=== PATIENT | female | born 2000 | race African-American/Black ===

== ENCOUNTER 2024-07-09 10:39 | Emergency (ER) | payer OTHER ==
[~2024-07-09] VITALS: Ht 167.6 cm; Wt 81.8 kg
[2024-07-09] MEDS ORDERED: TRAZ-186 PO (11:11)
[2024-07-09] MEDS ORDERED: VERA120C PO (11:11)
[2024-07-09] MEDS ORDERED: GALC120S SQ (11:11)
[2024-07-09] MEDS ORDERED: MELO15TA28 PO (11:11)
[2024-07-09] MEDS ORDERED: TOPI1CAP2 PO (11:11)
[2024-07-09] MEDS ORDERED: RIZA10TA58 PO (11:11)
[2024-07-09 15:46] LABS: BASO # 0.1 10^3/uL (0.0-0.2); BASO % 0.8 % (0.0-1.0); EOS % 0.3 % (0.0-3.0); HEMATOCRIT 41.3 % (36.0-47.0); HEMOGLOBIN 12.8 g/dl (12.0-15.5); LYMPH % 31.3 % (24.0-44.0); MEAN CORPUSCULAR HEMOGLOBIN 22.9 pg (27.0-33.0); MONO # 0.4 10^3/uL (0.0-0.8); MONO % 6.9 % (2.0-8.0); NEUTROPHILS # 3.9 10^3/uL (1.5-8.5); NEUTROPHILS % 60.4 % (36.0-66.0); PLATELET COUNT, AUTOMATED 320 10^3/uL (150-450); RED BLOOD COUNT 5.58 10^6/uL (4.00-5.40); WHITE BLOOD COUNT 6.4 10^3/uL (4.0-10.0)
[2024-07-09 15:57] LABS: BLOOD UREA NITROGEN 13 MG/DL (9-23); CALCIUM LEVEL 9.7 MG/DL (8.5-10.1); CARBON DIOXIDE LEVEL 27 MMOL/L (20-31); CHLORIDE LEVEL 104 MMOL/L (98-107); CREATININE FOR GFR 0.47 MG/DL (0.55-1.30); GLOMERULAR FILTRATION RATE > 60.0 (>60); GLUCOSE, FASTING 78 MG/DL (60-100); POTASSIUM SERUM 3.8 MMOL/L (3.5-5.1); SODIUM LEVEL 140 MMOL/L (136-145)
[2024-07-09 16:00] LABS: THYROID STIMULATING HORMONE 1.514 uIU/ML (0.55-4.78)
[2024-07-09 17:31] VITALS: BP 114/74; TEMP 98.3; O2SAT 100
== END 2024-07-09 17:56 | disposition home or self-care (01) ==
LOC: M ED 10:39
DX: R55 Syncope and collapse (principal); G43.909 Migraine, unspecified, not intractable, without status migrainosus; Z88.8 Allergy status to other drugs, medicaments and biological substances; Z79.899 Other long term (current) drug therapy

== ENCOUNTER 2024-08-31 09:09 | Emergency (ER) | payer OTHER ==
[~2024-08-31] VITALS: Ht 167.6 cm; Wt 90.0 kg
[~2024-08-31 09:09] MED LIST: GALC120S SQ; MELO15TA28 PO; RIZA10TA58 PO; TOPI1CAP2 PO; TRAZ-186 PO; VERA120C PO
[2024-08-31 11:46] LABS: BASO # 0.1 10^3/uL (0.0-0.2); BASO % 0.8 % (0.0-1.0); EOS % 0.7 % (0.0-3.0); HEMATOCRIT 43.5 % (36.0-47.0); HEMOGLOBIN 13.2 g/dl (12.0-15.5); LYMPH # 2.1 10^3/uL (1.5-5.0); LYMPH % 34.9 % (24.0-44.0); MEAN CORPUSCULAR HEMOGLOBIN 22.8 pg (27.0-33.0); MEAN CORPUSCULAR HGB CONC 30.3 g/dl (32.0-36.5); MEAN CORPUSCULAR VOLUME 75.3 fl (80.0-96.0); MONO # 0.4 10^3/uL (0.0-0.8); MONO % 6.7 % (2.0-8.0); NEUTROPHILS # 3.5 10^3/uL (1.5-8.5); NEUTROPHILS % 56.7 % (36.0-66.0); PLATELET COUNT, AUTOMATED 317 10^3/uL (150-450); RED BLOOD COUNT 5.78 10^6/uL (4.00-5.40); WHITE BLOOD COUNT 6.1 10^3/uL (4.0-10.0)
[2024-08-31 12:16] LABS: AMPHETAMINES LEVEL URINE NEGATIVE (NEGATIVE); BARBITURATES URINE NEGATIVE (NEGATIVE); BENZODIAZEPINES URINE NEGATIVE (NEGATIVE); COCAINE METABOLITE URINE NEGATIVE (NEGATIVE)
[2024-08-31 12:17] LABS: CANNABINOIDS URINE NEGATIVE (NEGATIVE); METHADONE URINE NEGATIVE (NEGATIVE); OPIATES URINE NEGATIVE (NEGATIVE); PHENCYCLIDINE URINE NEGATIVE (NEGATIVE)
[2024-08-31 12:20] LABS: BLOOD UREA NITROGEN 14 MG/DL (9-23); CALCIUM LEVEL 9.3 MG/DL (8.5-10.1); CARBON DIOXIDE LEVEL 26 MMOL/L (20-31); CHLORIDE LEVEL 106 MMOL/L (98-107); CREATININE FOR GFR 0.57 MG/DL (0.55-1.30); GLOMERULAR FILTRATION RATE > 60.0 (>60); GLUCOSE, FASTING 86 MG/DL (60-100); POTASSIUM SERUM 3.9 MMOL/L (3.5-5.1); SODIUM LEVEL 139 MMOL/L (136-145)
[2024-08-31 12:22] LABS: FREE T4 1.37 NG/DL (0.89-1.76); HCG, SERUM QUALITATIVE NEGATIVE (NEGATIVE)
[2024-08-31 13:54] VITALS: BP 111/61; TEMP 97.7; O2SAT 96
== END 2024-08-31 13:56 | disposition home or self-care (01) ==
LOC: M ED 09:09
DX: R55 Syncope and collapse (principal); G43.909 Migraine, unspecified, not intractable, without status migrainosus; G40.909 Epilepsy, unspecified, not intractable, without status epilepticus; Z79.899 Other long term (current) drug therapy; Z91.013 Allergy to seafood; Z88.8 Allergy status to other drugs, medicaments and biological substances; Z91.018 Allergy to other foods

== ENCOUNTER → 2025-03-11 | Outpatient (REF) | LOC: M PLAIMG 10:27 | PROVIDERS: ATTEND Internal Medicine | DX: Z01.89 Encounter for other specified special examinations (principal) ==